=== PATIENT | male | born 1955 | race Caucasian/White ===

== ENCOUNTER → 2024-05-03 13:10 | Outpatient (BNVA) | payer OTHER, MEDICARE, SELFPAY | PROVIDERS: Visit Provider Podiatrist Foot & Ankle Surgery | DX: M79.671 Pain in right foot (principal); M20.41 Other hammer toe(s) (acquired), right foot; M24.574 Contracture, right foot | CPT/HCPCS: 73630 ==

== ENCOUNTER 2024-06-03 10:10 | Day surgery (SDC) | payer OTHER, MEDICARE, SELFPAY ==
[2024-06-03] VITALS (7 sets, daily range): BP systolic 112–143; BP diastolic 75–88; PULSE 55–67; RESP 14–16; TEMP 36.1–36.3; O2SAT 92–100; BMI 36.2
--- NOTE | 2024-06-03 | XR_ITS ---
WS: [id number] XR foot RT min 3V* [id number] REASON FOR EXAM: SHONA PICS FINDINGS: Large screw arthrodesis of the PIP joint of the second toe. Surgical appliance is intact and in proper position and alignment. Normal alignment of the arthrodesis. XR/XR foot RT min 3V* [id number] IMPRESSION: Arthrodesis of the second toe without abnormality as above.
--- NOTE | 2024-06-03 10:57 | W.PM.OPSUD ---
Surgery/Procedure H&P Update DATE OF PROCEDURE: June 03, 2024 DATE H&P PERFORMED: 06/03/24 H&P UPDATE INFORMATION: I have reviewed H&P completed within last 30 days, I have examined patient prior to procedure and Risks and benefits of the procedure reviewed PREOP DIAGNOSIS: Right foot tendon contracture and second hammertoe deformity. PLANNED PROCEDURE: Operation Date: 06/03/24 11:50 Proposed Procedures p Right foot flexor tendon transfer(Right) - Vini Cardoso DPM s Right second Hammertoe Correction(Right) - Vini Cardoso DPM
--- NOTE | 2024-06-03 10:58 | PM.OPSURHP ---
Providers/Chief Complaint Primary Care Provider: GONZALO Ovalles Chief Complaint: M79.868 History of Present Illness Luis Leon is a 68 year old male presenting with right second hammer toe pain. He describes the condition as a sagittal plane dominant hammer toe contracture of the right second toe, with the apex of the deformity at the proximal interphalangeal joint. The issue has been persistent, affecting his ability to wear most of his shoes comfortably. He reported previously experiencing similar problems on the same toe of the other foot. Currently, only two pairs of shoes are bearable, indicating significant lifestyle and activity limitation due to the condition. He has tried various interventions, including callus trimming and the use of padding and spacers, but these have yielded limited relief and sometimes exacerbated the pain. The condition is such that any attempt to straighten the toe further aggravates the pain. The patient uses baby aspirin daily but does not take weight loss injections and has no history of adverse reactions to anesthesia. Review of Systems General: Reports: 10 or more systems reviewed and unremarkable except in HPI and below Const: Denies: fever(s) or chills Eyes: Denies: change in vision Card: Denies: chest pain or palpitations Resp: Denies: dyspnea or productive cough GI: Denies: abdominal pain, nausea or vomiting : Denies: flank pain Musc: Reports: extremity pain, joint pain, joint stiffness, limited range of motion and deformity Skin/Breast: Reports: skin tenderness; Denies: rash Neuro: Reports: difficulty walking; Denies: numbness in extremities, sensory changes or frequent falls Psych: Denies: suicidal ideation Bony/Lymph: Denies: easy bruising Medications/Allergies Home Medications ?Medication ?Instructions ?Recorded ?Confirmed ?Last Taken ?Type amlodipine 10 mg tablet (Norvasc) 10 mg PO DAILY 05/03/24 06/03/24 06/02/24 History atorvastatin 20 mg tablet (Lipitor) 20 mg PO DAILY 05/03/24 06/03/24 06/02/24 History lisinopril 40 mg tablet 40 mg PO DAILY 05/03/24 06/03/24 06/02/24 History meloxicam 15 mg tablet 15 mg PO DAILY 05/03/24 06/03/24 06/02/24 History aspirin 81 mg tablet,delayed 81 mg PO DAILY 06/02/24 06/03/2425 History release hydrocodone 10 mg-acetaminophen 1 tab PO Q6H PRN pain 7 days #28 06/03/24 Unknown Rx 325 mg tablet tabs Allergies Allergy/AdvReac Type Severity Reaction Status Date / Time No Known Allergies Allergy Verified 06/03/24 10:37 PFSH PFSH: Social History (Updated 05/03/24 @ 13:18 by Stiven Page LPN) Smoking and tobacco/nicotine status: former use of tobacco/nicotine Alcohol intake: never Substance/Drug Use: never Vital Signs Vitals Signs: Last Vital Signs Temp 97.4 F L 06/03/24 10:38 Pulse 65 06/03/24 10:38 Resp 16 06/03/24 10:38 BP 127/79 06/03/24 10:38 Pulse Ox 97 06/03/24 10:38 O2 Del Method Room Air 06/03/24 10:38 Weight: Weight last 48 hrs Weight 260 lb Physical Exam Narrative: EXAM NARRATIVE: Patient is alert and oriented ?3 and in no acute distress. The following is a focused bilateral lower extremity exam. VASCULAR: Dorsalis pedis and posterior tibial arteries palpable +2. Capillary refill time less than 3 seconds to the distal hallux bilaterally. Calf is supple and nontender proximally and distally. No pedal edema appreciated. Pedal hair growth present. NEUROLOGICAL: Epicritic and protopathic sensations grossly intact to the lower extremities. +2 Achilles tendon reflex noted bilaterally. Negative Tinel sign upon percussion of lower extremity nerves. DERMATOLOGICAL: Lower extremity skin is well-hydrated, normal texture and turgor. There are no open sores or lesions noted to the lower extremities. No erythema or ecchymosis present to the bilateral legs and feet. MUSCULOSKELETAL: Pain to palpation at similar reducible right second hammertoe deformity with apex of the deformity at the proximal interphalangeal joint. No palpable mass along the course of the plantar fascia appreciated. No pain to palpation along the course of the bilateral Achilles tendon. No pain to palpation along the course posterior tibial tendon or peroneal tendons. No pain with [id number] compression of calcaneus, bilaterally. Muscle strength is 5/5 in all 3 cardinal planes pain-free without guarding to the foot and ankle, bilaterally. CARDIOVASCULAR: S1, S2, normal rate, normal rhythm. Dorsalis pedis and posterior tibial arteries palpable. LUNGS: Clear to auscltation, no use of acessory muscles, no crackles or wheezes. A&P Assessment and plan (1) Contracture, right foot: (2) Hammertoe of second toe of right foot: (3) Right foot pain: Plan - Imaging: X-ray of the right foot showed a gun barrel sign of the distal phalanx of the right second toe with hammer toe contracture at the proximal interphalangeal joint. Assessment and Plan 68-year-old male with a history of hereditary hammer toe deformity presenting with right second toe pain. On examination, imaging revealed a sagittal plane dominant hammer toe contracture, affecting his ability to wear most types of footwear. Given the severity and progression of symptoms, surgical intervention is planned to address the deformity and improve quality of life. 1. Right Second Toe Hammer Toe Deformity The plan is to perform outpatient surgical correction of the hammer toe deformity. This will include an incision over the affected joint and fusion of the bones with an implant to maintain a natural angle during healing. Potential need for further joint correction during surgery will be evaluated. Recovery is expected to involve a six-week period in a stiff-soled shoe, with caution regarding weight-bearing activities. The patient is scheduled for surgery and has been informed of the procedure, recovery expectations, and potential post-operative pain and swelling. - Obtain padding and spacing devices for the toe until surgery. - Avoid getting the affected foot wet for two weeks post-surgery. - Arrange for transportation home after surgery due to sedation. - Be prepared for a six-week recovery period requiring a stiff-soled hospital-issued shoe. - Monitor for increased pain, swelling or changes that may require earlier medical attention. Given the patient's significant discomfort and limitation in footwear selection due to the hammer toe deformity, surgical correction is deemed necessary to improve functional outcomes and quality of life. The planned outpatient procedure will address the primary deformity and potentially additional joint correction if indicated during surgery. The goal is to realign the toe, ensure proper healing, and restore the ability to stand and walk without exacerbating symptoms. Alternatives such as conservative management have been exhausted, and the patient is informed about the surgical process, including the risks and benefits. The anticipated treatment outcome is improved foot function and diminished discomfort, particularly during weight-bearing activities. I reviewed at length with the patient, the risks, potential complications, benefits, alternatives, expectations, and typical outcomes associated with the surgery. The risks and potential complications were explained in detail, including but not limited to infection, wound dehiscence or soft tissue complications, bleeding and hematoma, chronic edema, neuritis or nerve damage producing numbness or chronic pain, CRPS, failure to relieve pain or worsening pain, thick / painful / unsightly scar, limited motion / stiffness, malposition, delayed union, malunion, or nonunion, fracture, reaction to implants, anesthetic complications, venous thromboembolism, and deformity recurrence. I discussed the notion of no regrets with the patient as it pertains to complications and outcomes. The patient seemed to understand the nature of the proposed care and required convalescence. They asked appropriate questions, answered to their satisfaction. They are aware no guarantees can be made as to a satisfactory outcome and they understand there may be other possible unforeseen complications or outcomes not listed here that will be treated accordingly if they arise. There were no written or implied guarantees given to the patient. They gave informed consent to proceed. Outpatient surgery scheduled right second hammertoe correction and tendon transfer., Mini C arm, [place], 30 minutes. June 03, 2024 local kylah ZAYAS, supine PDMP PDMP Reviewed: Last Reviewed 06/03/24 12:04 EDT by Vini Cardoso DPM Coding Level of Care Code Acute Code for Chg Fwd Diagnoses Contracture, right foot M24.574 Hammertoe of second toe of right foot M20.41 Right foot pain M79.671
[2024-06-03] MEDS: sodium chloride 0.9% 1,000 ML 30 ML IV (10:59)
[2024-06-03] MEDS: ceFAZolin 2,000 mg SDV 2000 MG IVP (11:22)
--- NOTE | 2024-06-03 11:24 | ANES.PREANE2 ---
Pre-Anesthetic Assessment Height/Weight: Height 1.8 m Weight 117.934 kg Temp Pulse Resp BP Pulse Ox O2 Del Method 97.4 F L 65 16 127/79 97 Room Air 06/03/24 10:38 06/03/24 10:38 06/03/24 10:38 06/03/24 10:38 06/03/24 10:38 06/03/24 10:38 Preop Diagnosis: Right foot tendon contracture and second hammertoe deformity. Operation Date: 06/03/24 11:50 Proposed Procedures p Right foot flexor tendon transfer(Right) - Vini Cardoso DPM s Right second Hammertoe Correction(Right) - Vini Cardoso DPM Familial anesthetic complications: none Was Beta Willard taken within 24 hours: N/A Was Clonidine taken within 24 hours: N/A Last intake: Intake Last Liquid Date 06/02/24 Last Liquid Time 21:00 Last Solid Date 06/02/24 Last Solid Time 19:00 Social No alcohol and No tobacco Exam alert, oriented x 3, clear to auscultation bilaterally and regular rate & rhythm Airway Mallampati: Class II Dentition: false Anesthetic Plan ASA status: 2 Anesthesia: MAC Risk of > 500 ml blood loss (7ml/kg in children): No Medications/Allergies Home Medications ?Medication ?Instructions ?Recorded ?Confirmed ?Last Taken ?Type amlodipine 10 mg tablet (Norvasc) 10 mg PO DAILY 05/03/24 06/03/24 06/02/24 History atorvastatin 20 mg tablet (Lipitor) 20 mg PO DAILY 05/03/24 06/03/24 06/02/24 History lisinopril 40 mg tablet 40 mg PO DAILY 05/03/24 06/03/24 06/02/24 History meloxicam 15 mg tablet 15 mg PO DAILY 05/03/24 06/03/24 06/02/24 History aspirin 81 mg tablet,delayed 81 mg PO DAILY 06/02/24 06/03/24 06/02/24 History release hydrocodone 10 mg-acetaminophen 1 tab PO Q6H PRN pain 7 days #28 06/03/24 Unknown Rx 325 mg tablet tabs Allergies Allergy/AdvReac Type Severity Reaction Status Date / Time No Known Allergies Allergy Verified 06/03/24 10:37 Current Medications Generic Name Dose Route Start Last Admin Trade Name Freq PRN Reason Stop Dose Admin Sodium Chloride 1,000 mls @ 30 mls/hr 06/03/24 10:45 06/03/24 10:59 Sodium Chloride 0.9% IV 06/04/24 10:44 30 mls/hr .Q24H ISRRAEL Administration PFSH Anesthesia Social History (Updated 05/03/24 @ 13:18 by Stiven Page LPN) Smoking and tobacco/nicotine status: former use of tobacco/nicotine Alcohol intake: never Substance/Drug Use: never Data Anesthesia Cardiac Studies: No Data to Display
[2024-06-03] MEDS: BUPivacaine liposome 13.3 mg/mL SDV 20 mL 266 MG INJECTION (11:51)
[2024-06-03] MEDS: BUPivacaine 0.5% INJ 10 mL 20 ML INJECTION (11:51)
--- NOTE | 2024-06-03 12:12 | W.PM.BPON ---
Date of Procedure: 05/22/23 Surgeon: Vini Cardoso DPM Supervisor Lump Room(s): Naye Marcus Procedure(s) performed: Right foot tendon transfer, right second hammertoe correction Findings of the procedure(s): Right foot tendon contracture and right foot hammertoe Estimated blood loss: 2 mL Specimen(s) removed: None Post-operative diagnosis: Right foot tendon contracture, right foot hammertoe deformity
--- NOTE | 2024-06-03 12:12 | PM.OP ---
Operative Report Date of procedure: June 03, 2024 Pre-op diagnosis: Right foot pain M79.671 Hammer toe of right foot M20.41 Contracture, right foot M24.574 Post-op diagnosis: Right foot pain M79.671 Hammer toe of right foot M20.41 Contracture, right foot M24.574 Procedure done: 1) right foot flexor tendon transfer. CPT code 68554 2) right second hammertoe correction. CPT code 29606 Implants: Arthrex Dynanite 4-0 Vicryl, 4 nylon Surgeon: Vini Cardoso DPM Golf Tournament Consultant: Naye Marcsu Estimated blood loss: 2 26 Urine output: None Complications: None Brief History: - Imaging: X-ray of the right foot showed a gun barrel sign of the distal phalanx of the right second toe with hammer toe contracture at the proximal interphalangeal joint. Assessment and Plan 68-year-old male with a history of hereditary hammer toe deformity presenting with right second toe pain. On examination, imaging revealed a sagittal plane dominant hammer toe contracture, affecting his ability to wear most types of footwear. Given the severity and progression of symptoms, surgical intervention is planned to address the deformity and improve quality of life. 1. Right Second Toe Hammer Toe Deformity The plan is to perform outpatient surgical correction of the hammer toe deformity. This will include an incision over the affected joint and fusion of the bones with an implant to maintain a natural angle during healing. Potential need for further joint correction during surgery will be evaluated. Recovery is expected to involve a six-week period in a stiff-soled shoe, with caution regarding weight-bearing activities. The patient is scheduled for surgery and has been informed of the procedure, recovery expectations, and potential post-operative pain and swelling. - Obtain padding and spacing devices for the toe until surgery. - Avoid getting the affected foot wet for two weeks post-surgery. - Arrange for transportation home after surgery due to sedation. - Be prepared for a six-week recovery period requiring a stiff-soled hospital-issued shoe. - Monitor for increased pain, swelling or changes that may require earlier medical attention. Given the patient's significant discomfort and limitation in footwear selection due to the hammer toe deformity, surgical correction is deemed necessary to improve functional outcomes and quality of life. The planned outpatient procedure will address the primary deformity and potentially additional joint correction if indicated during surgery. The goal is to realign the toe, ensure proper healing, and restore the ability to stand and walk without exacerbating symptoms. Alternatives such as conservative management have been exhausted, and the patient is informed about the surgical process, including the risks and benefits. The anticipated treatment outcome is improved foot function and diminished discomfort, particularly during weight-bearing activities. I reviewed at length with the patient, the risks, potential complications, benefits, alternatives, expectations, and typical outcomes associated with the surgery. The risks and potential complications were explained in detail, including but not limited to infection, wound dehiscence or soft tissue complications, bleeding and hematoma, chronic edema, neuritis or nerve damage producing numbness or chronic pain, CRPS, failure to relieve pain or worsening pain, thick / painful / unsightly scar, limited motion / stiffness, malposition, delayed union, malunion, or nonunion, fracture, reaction to implants, anesthetic complications, venous thromboembolism, and deformity recurrence. I discussed the notion of no regrets with the patient as it pertains to complications and outcomes. The patient seemed to understand the nature of the proposed care and required convalescence. They asked appropriate questions, answered to their satisfaction. They are aware no guarantees can be made as to a satisfactory outcome and they understand there may be other possible unforeseen complications or outcomes not listed here that will be treated accordingly if they arise. There were no written or implied guarantees given to the patient. They gave informed consent to proceed. Procedure: Under mild sedation the patient was brought to the operating room and remained on the gurney in supine position. A timeout was performed. Anesthesia was then administered by the anesthesia service. Local anesthesia injected by myself consisting of 20 cc of 0.5% Marcaine in a right second ray block fashion with an additional 20 cc of Exparel subcutaneously in a grid like fashion at the dorsal right foot per manufacture recommendation and technique. Well-padded pneumatic tourniquet was applied to the right ankle. The right lower extremity was scrubbed, prepped and draped utilizing normal aseptic technique. Right foot was then exanguinated with an Esmarch bandage and tourniquet inflated to 250 mmHg. Attention was directed to the right forefoot where deep tendon contracture was appreciated with sagittal plane dominant deformity of the right second toe as well as arthrosis of the right second proximal interphalangeal joint. A linear longitudinal incision made over the dorsal aspect of the right second toe through skin with a #15 blade with dissection carried down to extensor tendon which was transected at the level of the proximal interphalangeal joint and dissected proximally and temporary by a mosquito hemostat. The head and base of the right second proximal interphalangeal joint were resected with a oscillating saw pad about the field. Sharp dissection carried down to the flexor digitorum longus tendon which was transected at its most distal margin and split longitudinally and then transferred both medially laterally and hemisections fashion and transferred to the dorsal aspect of the right second toe which was then held in rectus and tendon was reapproximated utilizing 4-0 nylon helping to reduce the sagittal plane deformity at the right second toe and to help prevent cock-up toe deformity. The incision was irrigated with saline solution. Attention was directed at arthrodesis site of the proximal interphalangeal joint right second toe where subchondral drilling was performed at the proximal phalanx head and intermediate phalanx base. Next utilizing standard AO technique Arthrex titanium intramedullary implant was integrated and then retrograded to remain intramedullary within the distal, intermediate and proximal phalanx of the right second toe holding this rectus and allowing excellent compression at the proximal interphalangeal joint arthrodesis site excellent placement of hardware and rectus right second toe was appreciated both intraoperatively under direct visualization as well as with AP, oblique and lateral views noted to be excellent in all 3 planes with the second metatarsal plantar joint not being violated. Smooth range of motion appreciated at the right second metatarsal phalangeal joint. The incision was then flushed with copious amounts of sterile saline solution and the extensor tendon was reapproximated utilizing 4-0 Vicryl. Subcutaneous tissue closed with 4-0 Vicryl and skin with 4-0 nylon. The incision was then dressed with Adaptic, sterile 4 x 4's, Kerlix and Munir wrap followed by application of a cam boot. Tourniquet was deflated and a prompt hyperemic response was noted to the distal digits of the right foot. Patient tolerated the procedure and anesthesia well and was transferred to the PACU with vital signs stable and vascular status intact. Following a period of postoperative monitoring he will be discharged home was given at home care instructions and scheduled follow-up he is also given my cell phone number to contact me directly with any postoperative questions or concerns.
--- NOTE | 2024-06-03 13:05 | ANE.PACU2 ---
Inpatient post-anesthesia follow up: Airway intact: Yes Vital signs: Temperature 97.0 F Pulse Rate 55 Respiratory Rate 16 Blood Pressure 112/75 Pulse Oximetry 100 Oxygen Delivery Me thod Room Air Oxygen Flow Rate Fraction of Inspir ed Oxygen Hydration adequate: Yes Nausea and vomiting: No Pain level: 1 Mental status: Baseline
== END 2024-06-03 13:09 | disposition home or self-care (01) ==
PROVIDERS: PCP Registered Nurse; Visit Provider Podiatrist Foot & Ankle Surgery
PROC: (CPT 27691; principal; 2024-06-03 11:40)
PROC: (CPT 28285; 2024-06-03 11:40)
DX: M20.41 Other hammer toe(s) (acquired), right foot (principal); M24.574 Contracture, right foot; Z79.899 Other long term (current) drug therapy; Z79.82 Long term (current) use of aspirin; Z87.891 Personal history of nicotine dependence
CPT/HCPCS: 27691; 28285; 73630; 76000; C1713; C9290; J0690; J2704; J3010; J3490; J7030

== ENCOUNTER → 2024-06-16 13:17 | Outpatient (BNVA) | payer MEDICARE, SELFPAY | PROVIDERS: PCP Registered Nurse; Visit Provider Podiatrist Foot & Ankle Surgery | DX: Z98.890 Other specified postprocedural states (principal) | CPT/HCPCS: 73630; 99024 ==

== ENCOUNTER → 2024-07-14 14:16 | Outpatient (BNVA) | payer MEDICARE, OTHER, SELFPAY | PROVIDERS: PCP Registered Nurse; Visit Provider Podiatrist Foot & Ankle Surgery | DX: Z98.890 Other specified postprocedural states (principal) | CPT/HCPCS: 73630; 99024 ==

== ENCOUNTER → 2024-08-25 12:46 | Outpatient (BNVA) | payer MEDICARE, OTHER, SELFPAY | PROVIDERS: PCP Registered Nurse; Visit Provider Podiatrist Foot & Ankle Surgery | DX: M20.41 Other hammer toe(s) (acquired), right foot (principal); Z98.890 Other specified postprocedural states; L60.3 Nail dystrophy | CPT/HCPCS: 73630; 99024 ==